=== PATIENT | female | born 1935 | race Hispanic/Latino ===

== ENCOUNTER → 2023-05-23 | Outpatient (CLI) | payer OTHER ==
[~2023-05-23] MED LIST: IOHEXOL 350 MG/ML 100ML INFUS..BTL IV ONE
== END | disposition home or self-care (01) ==
LOC: RAH 09:43
PROVIDERS: ATTEND Student in an Organized Health Care Education/Training Program
DX: M47.815 Spondylosis without myelopathy or radiculopathy, thoracolumbar region (principal); R07.9 Chest pain, unspecified
CPT/HCPCS: 75574; Q9967